=== PATIENT | female | born 1975 | race Caucasian/White ===

== ENCOUNTER 2018-01-02 12:20 | Outpatient (CLI) | payer OTHER ==
[~2018-01-02 12:20] MED LIST: KLONOPIN2 MG/TAB; MIGRALAM CAPSUL1 CAP PO; SEROQUEL200 MG; TOPROL XL25 MG PO
== END 2018-01-02 15:22 | disposition home or self-care (01) ==
LOC: RAD 12:20
DX: M79.671 Pain in right foot (principal); E66.9 Obesity, unspecified

== ENCOUNTER 2018-06-06 10:39 | Outpatient (CLI) | payer OTHER ==
[~2018-06-06 10:39] MED LIST changes: +DICLOFENAC POTA50 MG PO; +TIZANIDINE HCL2 MG PO
== END 2018-06-06 10:47 | disposition home or self-care (01) ==
LOC: SONOGRAMA 10:39 → MAMO-SONO 11:15
DX: R10.11 Right upper quadrant pain (principal)

== ENCOUNTER 2019-06-16 12:00 | Outpatient (CLI) | payer OTHER | END 2019-06-16 12:01 | disposition home or self-care (01) | LOC: RAD 12:00 | DX: R06.2 Wheezing (principal); M54.5 Low back pain ==

== ENCOUNTER → 2023-03-18 11:13 | Outpatient (CLI) | payer OTHER | END | disposition home or self-care (01) | LOC: LAB 11:13 | PROVIDERS: ATTEND Specialist | DX: E55.9 Vitamin D deficiency, unspecified (principal); N39.9 Disorder of urinary system, unspecified; R19.5 Other fecal abnormalities; D64.89 Other specified anemias; M00.80 Arthritis due to other bacteria, unspecified joint; E11.69 Type 2 diabetes mellitus with other specified complication; E03.8 Other specified hypothyroidism; E11.21 Type 2 diabetes mellitus with diabetic nephropathy; Z13.220 Encounter for screening for lipoid disorders ==

== ENCOUNTER 2023-06-24 12:13 | Outpatient (CLI) | payer OTHER | END 2023-06-24 12:15 | disposition home or self-care (01) | LOC: LAB 12:13 | PROVIDERS: ATTEND Specialist | DX: E03.8 Other specified hypothyroidism (principal); D64.89 Other specified anemias; E11.69 Type 2 diabetes mellitus with other specified complication; N39.9 Disorder of urinary system, unspecified; E11.21 Type 2 diabetes mellitus with diabetic nephropathy; Z13.220 Encounter for screening for lipoid disorders ==

== ENCOUNTER 2023-09-22 10:19 | Outpatient (CLI) | payer OTHER ==
[2023-09-22 12:01] LABS: HEMATOCRIT 42.1 % (36.0-45.00); HEMOGLOBIN 14.1 g/dL (12.0-15.00); MEAN CELL VOLUME 92.1 fL (80.00-100.00); MEAN CORPUSCULAR HEMOGLOBIN 30.9 pg (27.00-32.0); MEAN CORPUSCULAR HGB CONC 33.6 g/dl (32.0-36.0); PLATELET COUNT 216 K/uL (150-450); RED BLOOD COUNT 4.58 M/uL (4.00-6.00); RED CELL DISTRIBUTION WIDTH 13.7 % (11.5-14.5)
[2023-09-22 12:20] LABS: PH,URINE 5.5 (5.0-8.0); URINE APPEARANCE Cloudy; URINE BILIRRUBIN Negative (NEGATIVE); URINE BLOOD Negative; URINE COLOR Yellow; URINE GLUCOSE Negative (NEGATIVE); URINE LEUKOCYTE Small; URINE NITRATE Negative; URINE PROTEIN Negative (NEGATIVE); URINE UROBILINOGEN 0.2 E.U./dl
[2023-09-22 12:21] LABS: URINE EPITHELIAL CELLS 96.3 uL (0.0-38.8)
[2023-09-22 12:45] LABS: CHOL HDL RATIO 2.9 (0-5.0); FREE TRIODOTIRONINE 2.53 pg/ml (2.18-3.98); T4 FREE 0.95 NG/ML (0.76-1.46); TSH 1.08 uIU/mL (0.358-3.74)
[2023-09-22 12:47] LABS: C-REACTIVE PROTEIN 0.75 MG/DL (0.00-0.29)
[2023-09-22 13:11] LABS: URINE BACTERIA > 9821.5 uL (0.0-1933)
== END 2023-09-22 10:28 | disposition home or self-care (01) ==
LOC: LAB 10:19
PROVIDERS: ATTEND Specialist
DX: Z13.220 Encounter for screening for lipoid disorders (principal); N39.9 Disorder of urinary system, unspecified; E11.21 Type 2 diabetes mellitus with diabetic nephropathy; M00.80 Arthritis due to other bacteria, unspecified joint; E03.8 Other specified hypothyroidism; N39.0 Urinary tract infection, site not specified; D64.89 Other specified anemias

== ENCOUNTER 2024-01-13 11:26 | Emergency (ER) | payer OTHER ==
[~2024-01-13] VITALS: Ht 165.1 cm; Wt 117.9 kg
[2024-01-13] MEDS ORDERED: HORIZANT300 MG (11:30)
[2024-01-13] MEDS ORDERED: KAPSPARGO SPRIN25 MG PO (11:30)
[2024-01-13] MEDS ORDERED: WELLBUTRIN XL300 MG PO (11:30)
[2024-01-13] MEDS ORDERED: GLUMETZA500 MG PO (11:30)
[2024-01-13 12:46] LABS: HEMATOCRIT 40.3 % (36.0-45.00); HEMOGLOBIN 13.7 g/dL (12.0-15.00); MEAN CELL VOLUME 92.7 fL (80.00-100.00); MEAN CORPUSCULAR HEMOGLOBIN 31.6 pg (27.00-32.0); MEAN CORPUSCULAR HGB CONC 34.1 g/dl (32.0-36.0); PLATELET COUNT 220 K/uL (150-450); RED BLOOD COUNT 4.34 M/uL (4.00-6.00); RED CELL DISTRIBUTION WIDTH 12.7 % (11.5-14.5)
[2024-01-13 12:52] LABS: PH,URINE 5.5 (5.0-8.0); URINE APPEARANCE Turbid; URINE BILIRRUBIN Negative (NEGATIVE); URINE BLOOD Large; URINE COLOR Dark Yellow; URINE GLUCOSE Negative (NEGATIVE); URINE LEUKOCYTE Large; URINE NITRATE Negative
[2024-01-13 12:54] LABS: URINE BACTERIA 1025.6 uL (0.0-1933); URINE EPITHELIAL CELLS 43.1 uL (0.0-38.8); URINE RBC 7998.2 uL (0.0-20.8)
[2024-01-13 12:57] LABS: URINE PROTEIN 100 (NEGATIVE)
[2024-01-13 13:29] LABS: CALCIUM 8.7 mg/dL (8.5-10.1); CREATININE SERUM 0.76 mg/dL (0.55-1.02); GFR 81.22; POTASSIUM 4.25 mEq/L (3.5-5.1)
== END 2024-01-13 14:03 | disposition home or self-care (01) ==
LOC: ER 11:26
PROVIDERS: General Practice
DX: N39.0 Urinary tract infection, site not specified (principal)

== ENCOUNTER 2024-04-13 06:28 | Emergency (ER) | payer OTHER ==
[~2024-04-13] VITALS: Ht 160 cm; Wt 104.3 kg
[~2024-04-13 06:28] MED LIST changes: +GLUMETZA500 MG PO; +HORIZANT300 MG; +KAPSPARGO SPRIN25 MG PO; +WELLBUTRIN XL300 MG PO
[2024-04-13] MEDS ORDERED: DEXAMETHASONE SODIUM PHOSPHATE 4 MG/ML VIAL IM ONE (09:15)
[2024-04-13] MEDS ORDERED: CETIRIZINE HCL 5 MG/5 ML ML PO ONE (09:15)
[2024-04-13 09:54] LABS: HEMATOCRIT 40.7 % (36.0-45.00); HEMOGLOBIN 13.8 g/dL (12.0-15.00); MEAN CELL VOLUME 92.6 fL (80.00-100.00); MEAN CORPUSCULAR HEMOGLOBIN 31.4 pg (27.00-32.0); MEAN CORPUSCULAR HGB CONC 33.9 g/dl (32.0-36.0); PLATELET COUNT 222 K/uL (150-450); RED CELL DISTRIBUTION WIDTH 13.4 % (11.5-14.5)
== END 2024-04-13 11:05 | disposition home or self-care (01) ==
LOC: ER 06:29
PROVIDERS: General Practice
DX: U07.1 COVID-19 (principal); E11.9 Type 2 diabetes mellitus without complications; Z79.84 Long term (current) use of oral hypoglycemic drugs; I10 Essential (primary) hypertension
CPT/HCPCS: 36415; 96372; 99282; J1100

== ENCOUNTER 2024-06-28 10:14 | Outpatient (CLI) | payer OTHER ==
[2024-06-28 11:28] LABS: HEMOGLOBIN 13.1 g/dL (12.0-15.00); MEAN CELL VOLUME 92.3 fL (80.00-100.00); MEAN CORPUSCULAR HEMOGLOBIN 30.3 pg (27.00-32.0); MEAN CORPUSCULAR HGB CONC 32.8 g/dl (32.0-36.0); PLATELET COUNT 211 K/uL (150-450); RED BLOOD COUNT 4.34 M/uL (4.00-6.00); RED CELL DISTRIBUTION WIDTH 13.2 % (11.5-14.5)
[2024-06-28 11:30] LABS: URINE APPEARANCE Clear; URINE BILIRRUBIN Negative (NEGATIVE); URINE COLOR Yellow; URINE GLUCOSE Negative (NEGATIVE); URINE KETONE Negative (NEGATIVE); URINE LEUKOCYTE Moderate; URINE NITRATE Negative; URINE PROTEIN Negative (NEGATIVE); URINE UROBILINOGEN 0.2 E.U./dl
[2024-06-28 11:34] LABS: URINE BACTERIA 603.4 uL (0.0-1933); URINE EPITHELIAL CELLS 49.9 uL (0.0-38.8); URINE RBC 5.4 uL (0.0-20.8); URINE WBC 63.8 uL (0.0-23.2)
[2024-06-28 11:43] LABS: ERYTHROCYTE SEDIMENTATION RATE 13 mm/hr
[2024-06-28 12:02] LABS: URINE BLOOD Trace
[2024-06-28 12:35] LABS: ALBUMIN 3.5 gm/dL (3.4-5.0); BILIRUBIN TOTAL 0.36 mg/dL (0.3-1.2); CALCIUM 8.8 mg/dL (8.5-10.1); CHOL HDL RATIO 2.9 (0-5.0); CREATININE SERUM 0.62 mg/dL (0.55-1.02); FREE TRIODOTIRONINE 2.76 pg/ml (2.18-3.98); GFR 102.74; GLOBULINA 3.3 G/DL (2.4-3.5); POTASSIUM 4.38 mEq/L (3.5-5.1); T4 FREE 0.93 NG/ML (0.76-1.46); TOTAL PROTEIN 6.8 gm/dL (6.4-8.2); TSH 1.74 uIU/mL (0.358-3.74)
[2024-06-28 12:38] LABS: C-REACTIVE PROTEIN 0.58 MG/DL (0.00-0.29)
== END 2024-06-28 10:22 | disposition home or self-care (01) ==
LOC: LAB 10:14
PROVIDERS: ATTEND Specialist
DX: M79.7 Fibromyalgia (principal); N39.9 Disorder of urinary system, unspecified; R07.89 Other chest pain; K92.2 Gastrointestinal hemorrhage, unspecified; E11.21 Type 2 diabetes mellitus with diabetic nephropathy; M00.80 Arthritis due to other bacteria, unspecified joint; N25.81 Secondary hyperparathyroidism of renal origin; E03.8 Other specified hypothyroidism; D64.89 Other specified anemias; E11.69 Type 2 diabetes mellitus with other specified complication; Z13.220 Encounter for screening for lipoid disorders

== ENCOUNTER 2024-12-21 09:29 | Outpatient (CLI) | payer OTHER | END 2024-12-21 09:33 | disposition home or self-care (01) | LOC: SONOGRAMA 09:29 | PROVIDERS: ATTEND Specialist | DX: N17.9 Acute kidney failure, unspecified (principal) ==

== ENCOUNTER 2024-12-24 11:26 | Emergency (ER) | payer OTHER ==
[~2024-12-24] VITALS: Ht 160 cm; Wt 104.3 kg
[2024-12-24] MEDS ORDERED: FAMOTIDINE/PF 20 MG in 0.9 % SODIUM CHLORIDE 8 ML IV PUSH STA (12:10)
[2024-12-24] MEDS ORDERED: MORPHINE SULFATE 4 MG/ML VIAL IV ONE (12:15)
[2024-12-24 12:54] LABS: HEMATOCRIT 39.2 % (36.0-45.00); HEMOGLOBIN 13.3 g/dL (12.0-15.00); MEAN CELL VOLUME 91.3 fL (80.00-100.00); MEAN CORPUSCULAR HEMOGLOBIN 31.1 pg (27.00-32.0); MEAN CORPUSCULAR HGB CONC 34.1 g/dl (32.0-36.0); PLATELET COUNT 225 K/uL (150-450); RED BLOOD COUNT 4.29 M/uL (4.00-6.00); RED CELL DISTRIBUTION WIDTH 13.9 % (11.5-14.5)
[2024-12-24 13:31] LABS: PH,URINE 5.5 (5.0-8.0); URINE APPEARANCE Cloudy; URINE BILIRRUBIN Negative (NEGATIVE); URINE COLOR Yellow; URINE GLUCOSE Negative (NEGATIVE); URINE KETONE Negative (NEGATIVE); URINE LEUKOCYTE Large; URINE NITRATE Negative; URINE PROTEIN Negative (NEGATIVE); URINE UROBILINOGEN 0.2 E.U./dl
[2024-12-24 13:35] LABS: URINE BACTERIA 6904.4 uL (0.0-1933); URINE RBC 6.6 uL (0.0-20.8); URINE WBC 586.1 uL (0.0-23.2)
[2024-12-24 13:55] LABS: URINE BLOOD TRACES; URINE EPITHELIAL CELLS > 201.7 uL (0.0-38.8)
[2024-12-24 13:56] LABS: URINE YEAST MANY /hpf
[2024-12-24 14:04] LABS: CALCIUM 8.6 mg/dL (8.5-10.1); CREATININE SERUM 0.58 mg/dL (0.55-1.02); GFR 110.49; POTASSIUM 4.18 mEq/L (3.5-5.1)
[2024-12-24] MEDS ORDERED: CEFTRIAXONE SODIUM 2,000 MG VIAL IV ONE (17:15)
[2024-12-24] MEDS ORDERED: CEPHALEXIN500 M1 PO (17:17)
== END 2024-12-24 18:32 | disposition home or self-care (01) ==
LOC: ER 11:29
PROVIDERS: Emergency Medicine
DX: N39.0 Urinary tract infection, site not specified (principal); R10.9 Unspecified abdominal pain; E11.9 Type 2 diabetes mellitus without complications; Z79.84 Long term (current) use of oral hypoglycemic drugs
CPT/HCPCS: 36415; 76700; 96365; 99284; J0696; J2270; J3490

== ENCOUNTER 2025-05-12 11:28 | Outpatient (CLI) | payer OTHER ==
[~2025-05-12 11:28] MED LIST changes: +CEPHALEXIN500 M1 PO
[2025-05-12 12:23] LABS: CREATININE SERUM 0.65 mg/dL (0.55-1.02)
== END 2025-05-12 11:31 | disposition home or self-care (01) ==
LOC: LAB 11:28
PROVIDERS: ATTEND Radiology Diagnostic Radiology
DX: D49.2 Neoplasm of unspecified behavior of bone, soft tissue, and skin (principal)

== ENCOUNTER 2025-05-27 10:49 | Outpatient (CLI) | payer OTHER | END 2025-05-27 10:54 | disposition home or self-care (01) | LOC: MRI 10:49 | PROVIDERS: ATTEND Surgery | DX: D49.2 Neoplasm of unspecified behavior of bone, soft tissue, and skin (principal) | CPT/HCPCS: 73720 ==